=== PATIENT | female | born 1985 | race Two or more races ===

== ENCOUNTER 2019-04-07 17:02 | Emergency (ER) | payer MEDICAID, OTHER ==
[~2019-04-07] VITALS: Ht 149.9 cm; Wt 43.1 kg
[2019-04-07] MEDS ORDERED: diphenhdrAMINE HCL 25 MG CAP PO ONE (21:30)
[2019-04-07 22:37] VITALS: BP 119/65
== END 2019-04-07 22:54 | disposition home or self-care (01) ==
LOC: ER 17:10
DX: S50.362A Insect bite (nonvenomous) of left elbow, initial encounter (principal); S50.361A Insect bite (nonvenomous) of right elbow, initial encounter; L30.9 Dermatitis, unspecified; W57.XXXA Bitten or stung by nonvenomous insect and other nonvenomous arthropods, initial encounter; Y93.89 Activity, other specified; Y92.89 Other specified places as the place of occurrence of the external cause; Y99.8 Other external cause status